=== PATIENT | male | born 1960 | race Caucasian/White ===

== ENCOUNTER 2020-07-01 23:54 | Emergency (ER) | payer BC, MEDICARE ==
[~2020-07-01] VITALS: Ht 175.3 cm; Wt 54.5 kg
[2020-07-02 00:42] LABS: CLARITY,URINE CLEAR (Clear); COLOR,URINE STRAW (Yellow); GLUCOSE, URINE NEGATIVE (Neg); KETONES,URINE NEGATIVE (Neg); LEUKOCYTE ESTERASE ,URINE NEGATIVE (Neg); NITRITES, URINE NEGATIVE (Neg); OCCULT BLOOD,URINE NEGATIVE (Neg); PROTEIN,URINE NEGATIVE (Neg); UROBILINOGEN,URINE 0.2 E.U/dL (0.2-1.0)
[2020-07-02 00:47] LABS: UA COLLECTION TYPE CLN CATCH MIDSTREAM
[2020-07-02 00:52] LABS: URINE AMPHETAMINE SCREEN NEGATIVE (Neg); URINE BARBITUATE SCREEN NEGATIVE (Neg); URINE BENZODIAZEPINES SCREEN NEGATIVE (Neg); URINE CANNABINOID SCREEN NEGATIVE (Neg); URINE COCAINE SCREEN NEGATIVE (Neg); URINE METHADONE SCREEN NEGATIVE (Neg); URINE OPIATE SCREEN NEGATIVE (Neg); URINE PHENCYCLIDINE SCREEN NEGATIVE (Neg)
[2020-07-02] MEDS ORDERED: OLANZapine 2.5MG tablet PO PRN (01:00)
[2020-07-02 01:02] LABS: BASOPHILS # (AUTO) 0.1 X10'3 (0-0.2); BASOPHILS % (AUTO) 0.9 % (0-1); EOSINOPHILS # (AUTO) 0.3 X10'3 (0-0.9); EOSINOPHILS % (AUTO) 3.4 % (0-6); HEMATOCRIT 36.5 % (42.0-52.0); HEMOGLOBIN 12.1 g/dl (14.0-17.9); LYMPHOCYTES # (AUTO) 2.5 X10'3 (1.1-4.8); LYMPHOCYTES % (AUTO) 29.5 % (21-51); MEAN CORPUSCULAR HEMOGLOBIN 28.5 PG (27.0-31.0); MEAN CORPUSCULAR HGB CONC 33.3 g/dL (33.0-36.5); MEAN CORPUSCULAR VOLUME 85.8 FL (78-98); MEAN PLATELET VOLUME 8.3 FL (7.4-10.4); MONOCYTES # (AUTO) 0.7 X10'3 (0-0.9); MONOCYTES % (AUTO) 7.6 % (2-12); NEUTROPHILS # (AUTO) 5.1 X10'3 (1.8-7.7); NEUTROPHILS % (AUTO) 58.6 % (42-75); PLATELET COUNT 300 X10'3 (140-440); RED BLOOD COUNT 4.25 X10'6 (4.70-6.10); RED CELL DISTRIBUTION WIDTH 16.2 % (11.5-14.5); WHITE BLOOD COUNT 8.6 X10'3 (4.5-11.0)
[2020-07-02] MEDS: olanzapine 10mg tablet PO PRN ×2 (01:10→19:58)
[2020-07-02 01:11] LABS: ALANINE AMINOTRANSFERASE 24 U/L (12-78); ALBUMIN/GLOBULIN RATIO 1.1 (1.1-1.5); ALKALINE PHOSPHATASE 81 IU/L (46-116); ANION GAP 11 (8-16); ASPARTATE AMINO TRANSFERASE 18 U/L (10-37); BILIRUBIN,TOTAL 0.2 MG/DL (0.1-1.0); BLOOD UREA NITROGEN 18 MG/DL (7-18); BUN/CREATININE RATIO 19.6 (5.4-32.0); CALCIUM 9.1 MG/DL (8.5-10.1); CHLORIDE 105 MMOL/L (99-107); CREATININE 0.92 MG/DL (0.60-1.10); GLUCOSE 97 MG/DL (70-104); POTASSIUM 3.9 MMOL/L (3.5-5.1); SODIUM 139 MMOL/L (135-145); TOTAL CARBON DIOXIDE 22.8 MMOL/L (24-32); TOTAL PROTEIN 7.6 G/DL (6.4-8.2); eGFR 83 ML/MIN
[2020-07-02 01:20] LABS: ETHANOL 0.183 GM/DL (0.0-0.010)
[2020-07-02] MEDS ORDERED: ALPR0.5T9 PO (01:21)
[2020-07-02] MEDS ORDERED: ATOR40TA72 PO (01:21)
[2020-07-02] MEDS ORDERED: METO-395 PO (01:21)
[2020-07-02] MEDS ORDERED: CITA40TA17 PO (01:21)
[2020-07-02] MEDS ORDERED: PANT40TA4 PO (01:21)
[2020-07-02] MEDS ORDERED: CITA20TA28 PO (01:21)
[2020-07-02] MEDS ORDERED: RIVA20TA PO (01:21)
[2020-07-02] MEDS ORDERED: AMIT100T61 PO (01:21)
[2020-07-02] MEDS ORDERED: OXYC1TAB17 PO (01:21)
[2020-07-02 01:29] LABS: ACETAMINOPHEN < 2.0 UG/ML (10-30)
--- NOTE | 2020-07-02 01:32 | NUR ---
The patient moved to bed 21 and he was cooperative with the move. He was given zyprexa prior to coming over.
--- NOTE | 2020-07-02 01:35 | NUR ---
PT PACKET FAXED TO [facility]
--- NOTE | 2020-07-02 03:29 | NUR ---
The patient appears to be sleeping
--- NOTE | 2020-07-02 04:54 | NUR ---
The patient appears to be asleep
--- NOTE | 2020-07-02 06:23 | NUR ---
Patient sleeping on left side. Respirations are even and nonlabored.
--- NOTE | 2020-07-02 06:58 | NUR ---
Patient's called and is concerned that patient will be released before he is ready, expressed concerns.
[2020-07-02] MEDS: ALPRAZolam 0.5mg tablet PO SCH (08:38)
[2020-07-02] MEDS: citalopram 20mg tablet PO SCH ×2 (08:39)
[2020-07-02] MEDS: metoprolol succinate 25mg (24-HOUR) SR. Tablet PO SCH (08:39)
[2020-07-02] MEDS: pantoprazole 40mg Tablet.DR PO SCH ×2 (08:39→19:57)
[2020-07-02] MEDS: rivaroxaban 20mg tablet PO SCH (08:39)
[2020-07-02] MEDS: atorvastatin 20mg tablet PO SCH (08:39)
[2020-07-02] MEDS: amitriptyline 50mg tablet PO SCH ×2 (08:40→19:57)
--- NOTE | 2020-07-02 09:01 | NUR ---
Patient took medications without incident. [facility] here to evaluate patient.
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
--- NOTE | 2020-07-02 10:51 | NUR ---
assumed care of pt
[2020-07-02] MEDS: oxyCODONE/APAP 10/325mg tablet PO PRN ×2 (10:59→19:58)
--- NOTE | 2020-07-02 11:30 | NUR ---
pt is resting
--- NOTE | 2020-07-02 12:52 | NUR ---
pt is resting
--- NOTE | 2020-07-02 13:00 | NUR ---
pt is sleeping. no concerns
--- NOTE | 2020-07-02 14:00 | NUR ---
pt is sleeping. no concerns
--- NOTE | 2020-07-02 15:00 | NUR ---
pt is sleeping. no concerns
--- NOTE | 2020-07-02 16:18 | NUR ---
pt is sleeping. no concerns
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
--- NOTE | 2020-07-02 20:36 | NUR ---
pt given evening meds, calm, no s/s of agitation
--- NOTE | 2020-07-02 21:30 | NUR ---
pt is sleeping, no s/s of agitation
--- NOTE | 2020-07-02 22:30 | NUR ---
pt is supine in bed, eyes closed, asleep, will continue to monitor
--- NOTE | 2020-07-03 00:30 | NUR ---
Resting. No evidence of distress. Respirations even.
--- NOTE | 2020-07-03 01:53 | NUR ---
Resting. Respirations even and unlabored.
--- NOTE | 2020-07-03 02:05 | NUR ---
Client resting, eye's closed. No distress.
--- NOTE | 2020-07-03 03:03 | NUR ---
Resting on left side, eye's closed.
--- NOTE | 2020-07-03 03:55 | NUR ---
Resting, eye's closed.
--- NOTE | 2020-07-03 05:47 | NUR ---
Client slept during shift. Compliant with VS. Resp even and unlabored.
[2020-07-03 05:54] VITALS: BP 106/70
--- NOTE | 2020-07-03 06:35 | NUR ---
pt is sleeping at this time,rr nonlabored ,will cont to monitor.
--- NOTE | 2020-07-03 07:10 | NUR ---
pt appear sleeping at this time ,no distress noted. will cont to monitor.
--- NOTE | 2020-07-03 08:05 | NUR ---
pt sitting up in quietly in bed ,waiting for breakfast tray then give pt scheduled meds.
--- NOTE | 2020-07-03 08:15 | NUR ---
Breakfast trays have arrived and are taken to pt's room.
[2020-07-03] MEDS: pantoprazole 40mg Tablet.DR PO SCH (08:31)
[2020-07-03] MEDS: metoprolol succinate 25mg (24-HOUR) SR. Tablet PO SCH (08:31)
[2020-07-03] MEDS: rivaroxaban 20mg tablet PO SCH (08:31)
[2020-07-03] MEDS: amitriptyline 50mg tablet PO SCH (08:32)
[2020-07-03] MEDS: atorvastatin 20mg tablet PO SCH (08:32)
[2020-07-03] MEDS: ALPRAZolam 0.5mg tablet PO SCH (08:32)
[2020-07-03] MEDS: citalopram 20mg tablet PO SCH ×2 (08:33→08:37)
[2020-07-03] MEDS: oxyCODONE/APAP 10/325mg tablet PO PRN (08:35)
--- NOTE | 2020-07-03 08:49 | NUR ---
pt brother Brian called, pt did not want to speak to him
--- NOTE | 2020-07-03 09:25 | NUR ---
reassessed the pt pain level as per pt its still there but it is better than before .pain 3/10.will cont to monitor ,pt sitting up in bed quietly.
--- NOTE | 2020-07-03 09:39 | NUR ---
pt up to use restroom,now back to his bed.no distress noted ,will cont to monitor.
--- NOTE | 2020-07-03 09:54 | NUR ---
pt c/o intermittent lft sided chest pain started this am when pt woke up around 0815,pt said pain is 2-3/10 ,pt denies any dizziness ,no sob . hx of heart attack in past with defebri. notified dr arsh heller the pt ocndition as per md khan stat ekg.will follow the orders.
--- NOTE | 2020-07-03 10:28 | NUR ---
[facility] called and pt will be going to [facility] some time today
--- NOTE | 2020-07-03 10:39 | NUR ---
Pt's troponin level drawn to evaluate a trend from the result at 0039 due to intermittent chest pain. Pt is calm and cooperative at this time.
--- NOTE | 2020-07-03 11:27 | NUR ---
Pt is pending transfer to [facility] on the third floor for admission and mental health evaluation. Pt's second troponin was negative and he reports the chest pain is resolved at this time.
== END 2020-07-03 12:22 ==
LOC: ER 23:54
DX: R45.851 Suicidal ideations (principal); F10.129 Alcohol abuse with intoxication, unspecified; D64.9 Anemia, unspecified; I25.10 Atherosclerotic heart disease of native coronary artery without angina pectoris; E78.00 Pure hypercholesterolemia, unspecified; I10 Essential (primary) hypertension; J44.9 Chronic obstructive pulmonary disease, unspecified; Z95.810 Presence of automatic (implantable) cardiac defibrillator; Z79.899 Other long term (current) drug therapy; Y90.0 Blood alcohol level of less than 20 mg/100 ml
CPT/HCPCS: 36415; 80053; 80305; 80320; 80329; 81003; 84443; 84484; 85025; 93005; 99285

== ENCOUNTER 2020-07-03 10:19 | Inpatient (IN) | payer BC ==
[~2020-07-03] VITALS: Ht 172.7 cm; Wt 100.0 kg
[~2020-07-03 10:19] MED LIST: ALPR0.5T9 PO; AMIT100T61 PO; ATOR40TA72 PO; CITA20TA28 PO; CITA40TA17 PO; METO-395 PO; OXYC1TAB17 PO; PANT40TA4 PO; RIVA20TA PO
[2020-07-03] MEDS ORDERED: loperamide 2mg capsule PO PRN (12:45)
[2020-07-03] MEDS ORDERED: magnesium hydroxide 30ml (MOM) UD suspension PO PRN (12:45)
[2020-07-03] MEDS ORDERED: acetaminophen 325mg tablet PO PRN ×2 (12:45)
[2020-07-03] MEDS ORDERED: mag hydrox/Alum hydrox/simeth 30ml oral suspension PO PRN (12:45)
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
[2020-07-03] MEDS: LORazepam 1 MG tablet PO PRN ×2 (14:56→20:52)
[2020-07-03 14:57] VITALS: BP 111/69
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
[2020-07-03] MEDS: pantoprazole 40mg Tablet.DR PO SCH (19:31)
[2020-07-03] MEDS: amitriptyline 50mg tablet PO SCH (19:31)
[2020-07-03] MEDS: oxyCODONE/APAP 10/325mg tablet PO SCH (19:35)
[2020-07-03 19:49] VITALS: BP 112/56
--- NOTE | 2020-07-04 00:20 | NUR ---
Nursing Progress Note: Thad Legal hold: 5150 ex: 07/06/20, @1222 Client on involuntary status for DTS. Report received from ABBI Gomez with use of SBAR. Why are they here: Pt placed a gun to his head, chin, advent and mouth stating he "Is done" "I dont want to live anymore.". Pt did this in front of his . She called 911 and pt brought in by . Pt has history of depression, HTN, COPD, AICD, heart attack and heart stents. Pts ETOH 0.183 upon arrival to ER. Assessment What has happened this shift: Pt was in his room during shift change. States he is doing good but would like his medications as soonest possible as he wants to go to sleep. Pt was cooperative during 1:1 physical assessment and took all his HS meds. He states that he would like more Ativan as he rates his anxiety a 7/10. Informed pt that this was too early but agreed to take it later. He denies any S/I and when asked this pt laughs in a sarcastic way. He states that he thought he would only be at the hospital for 72 hours, but when he got up here they told him his hold would start all over again. He states that he is not very happy about this and just wants to go home. He remained isolative to his room and continues to be guarded. Pt did request Ativan prior to going to sleep stating that his anxiety was still pretty high. This was given with good effect. S/I, H/I: Denies A/VH: Denies Sleep: Currently sleeping, see sleep assessment for total hours ADL's: Independent Group attendance: None during second cook and baker Were meds taken: Yes Any med S/E: None noted or reported Mental Status Exam Appearance: Appropriate, wearing green unit scrubs, long hair Eye contact: Good, direct Behavior: Cooperate, guarded, isolative, pleasant Speech: Normal rate and rhythm Mood: Depressed Affect: Blunted Thought process: Linear Thought Content: Not wanting to be here, believes he is ready to go home, meds, pain management Cognition: Alert and oriented X4 Insight: Poor Judgment: Poor Interventions PRN's used: Ativan X1 Therapeutic interventions: Introduced self and attempted to establish rapport, maintained a safe and therapeutic environment, provided clear and simple instructions, encouraged participation on the unit and provided redirection as needed, reinforced rules of the unit, provided medication education and education regarding needed laboratory draws, and maintained Q 15min safety checks. Restraints/seclusion/emergency medication: N/A Justification of Continued Inpatient Treatment: Requires interruption of current crisis, medication adjustments, and a safe and supportive environment to prevent readmission, future suicidal thought or attempts.
[2020-07-04 07:54] LABS: HEMOGLOBIN A1C 6.2 % (4.5-6.2)
[2020-07-04] MEDS: pantoprazole 40mg Tablet.DR PO SCH ×2 (07:58→19:41)
[2020-07-04] MEDS: amitriptyline 50mg tablet PO SCH ×2 (07:58→19:41)
[2020-07-04] MEDS: citalopram 20mg tablet PO SCH (07:59)
[2020-07-04] MEDS: oxyCODONE/APAP 10/325mg tablet PO SCH ×2 (07:59→19:49)
[2020-07-04] MEDS: atorvastatin 20mg tablet PO SCH (08:00)
[2020-07-04] MEDS: metoprolol succinate 25mg (24-HOUR) SR. Tablet PO SCH (08:00)
[2020-07-04] MEDS ORDERED: citalopram 20mg tablet PO SCH (08:00)
[2020-07-04] MEDS: rivaroxaban 20mg tablet PO SCH (08:00)
[2020-07-04] MEDS ORDERED: ALPRAZolam 0.5mg tablet PO SCH (08:00)
[2020-07-04 08:01] LABS: CHOL/HDL RATIO 2.7 (0.00-4.99); CHOLESTEROL 127 MG/DL (0-200); HDL CHOLESTEROL 47 MG/DL (35-60); LDL CHOLESTEROL 65 MG/DL (50-100); TRIGLYCERIDES 87 MG/DL (20-135)
[2020-07-04] MEDS: LORazepam 1 MG tablet PO PRN ×2 (10:00→17:10)
--- NOTE | 2020-07-04 11:25 | NUR ---
EATING IN ROOM per Jennifer, it is OK for patient to eat meal trays in his room.
[2020-07-04] MEDS ORDERED: albuterol 2.5 MG/3 ML nebule NEB PRN (11:50)
--- NOTE | 2020-07-04 14:40 | NUR ---
NURSING PROGRESS NOTE Legal hold: 5150 ex: 07/06/20, @122 Client on involuntary status for DTS. Report received from SHARON De La Rosa with use of SBAR Why are they here: Pt placed a gun to his head, chin, cheondoism and mouth stating he "Is done" "I dont want to live anymore.". Pt did this in front of his . She called 911 and pt brought in by . Pt has history of depression, HTN, COPD, AICD, heart attack and heart stents. Pts ETOH 0.183 upon arrival to ER. Assessment What has happened this shift: Patient does not want to come out of room much mainly because the other patients on unit are not wearing masks and he feels they should be. He is a high risk patient for Covid as he has multiple lung and heart issues. He also complained about the 3 day hold starting over when he was admitted to [facility] stating "they didn't tell me that before I came here (the hold starts over), I spent 2 days in the ER!" The patient is also concerned about eating in the dining room and his room not being cleaned. He was informed of grievance procedure which he did take advantage of. Jennifer, director of [facility] did make an exception and this patient is allowed to eat meals in his room. States he just "did a stupid thing" "I got drunk and stupid." Reports feeling depressed and grief over his son's and also for the loss of his good health, "I can't do the things I used to do." Given grief handout. S/I, H/I: Denies A/VH: Denies Sleep: napped ADL's: Independent Group attendance: No Were meds taken: Yes Any med S/E: None noted or reported Mental Status Exam Appearance: Appropriate, wearing green unit scrubs, long hair Eye contact: Good, direct Behavior: Cooperate, guarded, isolative, pleasant Speech: Normal rate and rhythm Mood: Depressed Affect: Blunted Thought process: Linear Thought Content: minimizing, wants to go home Cognition: Alert and oriented X4 Insight: Poor Judgment: Poor Interventions PRN's used: Ativan X1 Therapeutic interventions: Introduced self and attempted to establish rapport, maintained a safe and therapeutic environment, provided clear and simple instructions, encouraged participation on the unit and provided redirection as needed, reinforced rules of the unit, provided medication education and education regarding needed laboratory draws, and maintained Q 15min safety checks. Restraints/seclusion/emergency medication: N/A Justification of Continued Inpatient Treatment: Requires interruption of current crisis, medication adjustments, and a safe and supportive environment to prevent readmission, future suicidal thought or attempts.
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
--- NOTE | 2020-07-04 16:09 | NUR ---
: SABINO PH# [phone] (HOME) [phone] (CELL)
[2020-07-04 20:13] VITALS: BP 91/60
[2020-07-04] MEDS: traZODone 50mg tablet PO PRN ×2 (21:27→22:24)
--- NOTE | 2020-07-04 22:37 | NUR ---
Nursing Progress Note: Thad Legal hold: 5150 ex: 07/06/20, @5088 Client on involuntary status for DTS. Report received from ABBI Gomez with use of SBAR. Why are they here: Pt placed a gun to his head, chin, orthodox and mouth stating he "Is done" "I dont want to live anymore.". Pt did this in front of his . She called 911 and pt brought in by . Pt has history of depression, HTN, COPD, AICD, heart attack and heart stents. Pts ETOH 0.183 upon arrival to ER. Assessment What has happened this shift: Pt was in his room wearing a mask during shift change. States that he is in a lot of pain and would like his medications as soon as possible. His pain level was at a 5/10. Pt was cooperative during 1:1 physical assessment and took all his HS meds. He denies any S/I, H/I, appears depressed but there is some brightening and pt interacts well with this marine underwriter. He is eager to go home and states Im ready to pull my fairs out. I would pay anybody to smuggle me out of here. At the same time pt states that he talked to his doctor and is going to waited out and see what happens. States that he is still having some anxiety and would like to take some Ativan and Trazodone later on if he is having trouble sleeping. He was observed interacting with other patients appropriately playing cards in community room. Pt came up to nursing station stating he couldn't sleep. Second dose of Trazodone was administered per his request. Will continue to monitor. S/I, H/I: Denies A/VH: Denies Sleep: Currently sleeping, see sleep assessment for total hours ADL's: Independent Group attendance: None during night clerk auditor Were meds taken: Yes Any med S/E: None noted or reported Mental Status Exam Appearance: Appropriate, wearing green unit scrubs, long hair Eye contact: Good, direct Behavior: Cooperate, withdrawn, more social today and less isolative Speech: Normal rate and rhythm Mood: Upset he has to stay here two more days Affect: Blunted with intermittent brightening Thought process: Linear Thought Content: Discharge, meds, family Cognition: Alert and oriented X4 Insight: Poor Judgment: Poor Interventions PRN's used: Trazodone X2 Therapeutic interventions: Introduced self and attempted to establish rapport, maintained a safe and therapeutic environment, provided clear and simple instructions, encouraged participation on the unit and provided redirection as needed, reinforced rules of the unit, provided medication education and education regarding needed laboratory draws, and maintained Q 15min safety checks. Restraints/seclusion/emergency medication: N/A Justification of Continued Inpatient Treatment: Requires interruption of current crisis, medication adjustments, and a safe and supportive environment to prevent readmission, future suicidal thought or attempts.
[2020-07-05] MEDS: amitriptyline 50mg tablet PO SCH ×2 (07:26→20:00)
[2020-07-05] MEDS: metoprolol succinate 25mg (24-HOUR) SR. Tablet PO SCH (07:27)
[2020-07-05] MEDS: rivaroxaban 20mg tablet PO SCH (07:27)
[2020-07-05] MEDS: levoTHYROXINE 25mcg tablet PO SCH (07:27)
[2020-07-05] MEDS: citalopram 20mg tablet PO SCH (07:27)
[2020-07-05] MEDS: atorvastatin 20mg tablet PO SCH (07:27)
[2020-07-05] MEDS: pantoprazole 40mg Tablet.DR PO SCH ×2 (07:27→20:01)
[2020-07-05] MEDS: oxyCODONE/APAP 10/325mg tablet PO SCH ×2 (07:28→20:00)
[2020-07-05] MEDS: LORazepam 1 MG tablet PO PRN ×3 (07:51→20:01)
[2020-07-05] MEDS ORDERED: venlafaxine XR 37.5mg cap (Q24H) PO SCH (08:00)
[2020-07-05] MEDS ORDERED: CITALOpram 10mg tablet PO SCH (08:00)
--- NOTE | 2020-07-05 10:59 | NUR ---
NURSING PROGRESS NOTE Legal hold: 5150 ex: 07/06/20, @1223 Client on involuntary status for DTS. Report received from SHARON De La Rosa with use of SBAR Why are they here: Pt placed a gun to his head, chin, faith and mouth stating he "Is done" "I dont want to live anymore.". Pt did this in front of his . She called 911 and pt brought in by . Pt has history of depression, HTN, COPD, AICD, heart attack and heart stents. Pts ETOH 0.183 upon arrival to ER. Assessment What has happened this shift: Isolating to room, eating in room. Minimizing his circumstances. Given grief handout yesterday, when asked if he looked at it he just sadly shook his head "no", and stated, I'm ready to go home. States he "knows" he scared his when putting gun to head. Has agreed to going to therapy with . Depressed, sad, grieving. S/I, H/I: Denies A/VH: Denies Sleep: napped ADL's: Independent Group attendance: No Were meds taken: Yes Any med S/E: None noted or reported Mental Status Exam Appearance: Appropriate, wearing green unit scrubs, long hair Eye contact: Good, direct Behavior: Cooperate, guarded, isolative, pleasant Speech: Normal rate and rhythm Mood: Depressed Affect: Blunted Thought process: Linear Thought Content: minimizing, wants to go home Cognition: Alert and oriented X4 Insight: Poor Judgment: Poor Interventions PRN's used: Ativan X1 Therapeutic interventions: Introduced self and attempted to establish rapport, maintained a safe and therapeutic environment, provided clear and simple instructions, encouraged participation on the unit and provided redirection as needed, reinforced rules of the unit, provided medication education and education regarding needed laboratory draws, and maintained Q 15min safety checks. Restraints/seclusion/emergency medication: N/A Justification of Continued Inpatient Treatment: Requires interruption of current crisis, medication adjustments, and a safe and supportive environment to prevent readmission, future suicidal thought or attempts.
[2020-07-05 19:52] VITALS: BP 110/80
[2020-07-05] MEDS: traZODone 50mg tablet PO PRN ×3 (20:00→22:52)
--- NOTE | 2020-07-06 01:16 | NUR ---
Nursing Progress Note: Thad Legal hold: 5150 ex: 07/06/20, @3272 Client on involuntary status for DTS. Report received from ABBI Gomez with use of SBAR. Why are they here: Pt placed a gun to his head, chin, methodist and mouth stating he "Is done" "I dont want to live anymore.". Pt did this in front of his . She called 911 and pt brought in by . Pt has history of depression, HTN, COPD, AICD, heart attack and heart stents. Pts ETOH 0.183 upon arrival to ER. Assessment What has happened this shift: Pt was in his room during shift change. States he had a good day but he believes he will be going home tomorrow so he looking forward to that. Pt was cooperative during 1:1 physical assessment and took all his HS meds. He denies any S/I, H/I, and states he is feeling some anxiety. He states that he is feeling SOB and this RN offered to get some breathing treatment for him but he states that since he was leaving soon he didnt need it. O2 sats are within normal limits. He requested Ativan for increased anxiety. This was given with good effect. He later on also requested Trazodone as he was having difficulty falling asleep. Pt remained isolative but does not appear as depressed. S/I, H/I: Denies A/VH: Denies Sleep: Currently sleeping, see sleep assessment for total hours ADL's: Independent Group attendance: None during academic specialist Were meds taken: Yes Any med S/E: None noted or reported Mental Status Exam Appearance: Appropriate, wearing green unit scrubs, long hair Eye contact: Good, direct Behavior: Cooperate, social, pleasant Speech: Normal rate and rhythm Mood: Appears less depressed, hopeful, anxious Affect: Blunted with intermittent brightening Thought process: Linear Thought Content: Discharge, meds, pain management Cognition: Alert and oriented X4 Insight: Poor Judgment: Poor Interventions PRN's used: Trazodone X2, Ativan X1 Therapeutic interventions: Introduced self and attempted to establish rapport, maintained a safe and therapeutic environment, provided clear and simple instructions, encouraged participation on the unit and provided redirection as needed, reinforced rules of the unit, provided medication education and education regarding needed laboratory draws, and maintained Q 15min safety checks. Restraints/seclusion/emergency medication: N/A Justification of Continued Inpatient Treatment: Requires interruption of current crisis, medication adjustments, and a safe and supportive environment to prevent readmission, future suicidal thought or attempts.
[2020-07-06 07:00] VITALS: BP 115/66
[2020-07-06] MEDS ORDERED: venlafaxine XR 75mg capsule (Q24H) PO SCH (08:00)
[2020-07-06] MEDS: oxyCODONE/APAP 10/325mg tablet PO SCH (08:00)
[2020-07-06] MEDS: pantoprazole 40mg Tablet.DR PO SCH (08:00)
[2020-07-06] MEDS: citalopram 20mg tablet PO SCH (08:01)
[2020-07-06] MEDS: levoTHYROXINE 25mcg tablet PO SCH (08:01)
[2020-07-06] MEDS: amitriptyline 50mg tablet PO SCH (08:02)
[2020-07-06] MEDS: rivaroxaban 20mg tablet PO SCH (08:02)
[2020-07-06] MEDS: metoprolol succinate 25mg (24-HOUR) SR. Tablet PO SCH (08:02)
[2020-07-06] MEDS: atorvastatin 20mg tablet PO SCH (08:02)
[2020-07-06] MEDS: LORazepam 1 MG tablet PO PRN (08:11)
[2020-07-06] MEDS ORDERED: amitriptyline 50mg tablet PO SCH (11:45)
[2020-07-06] MEDS ORDERED: AMIT-189 PO (11:58)
[2020-07-06] MEDS ORDERED: CITA40TA11 PO (11:58)
[2020-07-06] MEDS ORDERED: LEVO25TA7 PO (11:58)
[2020-07-06] MEDS ORDERED: VENL75CA61 PO (11:58)
[2020-07-06] MEDS ORDERED: TRAZ-251 PO (11:58)
[2020-07-06] MEDS ORDERED: ATI1T PO (11:58)
--- NOTE | 2020-07-06 12:30 | NUR ---
Discharge note: Follow-Up: Patient has been scheduled/referred to the following providers for post-hospital discharge and aftercare treatment. Primary Care Provider: Appointment: 07/08/20 at 12:[address] [facility] [address] [place] [address] Therapist: Follow up with therapist provided by [facility] Discharge Address: [address] [place], [place] Transportation: Family Patient given community crisis services information and National suicide hotline handout. Resources for education regarding mental illness: [address] [address] For urgent mental health crisis needs please contact Mobile Crisis Outreach Team Tuesday through Tuesday 8:30am to 5:00pm. . Mobile Crisis Outreach Team [address] [place] [address] [phone] Pt given all of his belongings back . Pt picked up by is . Pt denies SI. Pt discharged.
== END 2020-07-06 12:34 | disposition home or self-care (01) | DRG 885 ==
LOC: ADULT MH 12:24
PROVIDERS: ADMIT Psychiatry & Neurology Psychiatry; ATTEND Psychiatry & Neurology Psychiatry
DX: F33.2 Major depressive disorder, recurrent severe without psychotic features (principal); R45.851 Suicidal ideations; E03.9 Hypothyroidism, unspecified; E66.3 Overweight; E78.5 Hyperlipidemia, unspecified; F10.920 Alcohol use, unspecified with intoxication, uncomplicated; F43.12 Post-traumatic stress disorder, chronic; F41.9 Anxiety disorder, unspecified; G89.29 Other chronic pain; I10 Essential (primary) hypertension; I25.10 Atherosclerotic heart disease of native coronary artery without angina pectoris; J44.9 Chronic obstructive pulmonary disease, unspecified; K21.9 Gastro-esophageal reflux disease without esophagitis; Z79.01 Long term (current) use of anticoagulants; Z79.899 Other long term (current) drug therapy; Z95.5 Presence of coronary angioplasty implant and graft; Z68.33 Body mass index [BMI] 33.0-33.9, adult; Z95.810 Presence of automatic (implantable) cardiac defibrillator
CPT/HCPCS: 36415; 80061; 83036; 86376; 87081; 93005; 99285